=== PATIENT | male | born 1955 | race Hispanic/Latino ===

== ENCOUNTER 2016-09-19 23:50 | Emergency (ER) | payer MEDICARE ==
[~2016-09-19] VITALS: Ht 175.3 cm; Wt 86.4 kg
[~2016-09-19 23:50] MED LIST: ASPI325T32 PO; BECL8.7A6 IH; BENZ100C8 PO; FINA5TAB9 PO; FLUT15.88 NS; GLPZ5T PO; GUAI10LI PO; HYDR-4003 PO; IBUP800T28 PO; IPRA4AER IH; LEVO750T9 PO; LISI40TA PO; METF500T4 PO; METO50TA3 PO; NITR12SP5 SPRAY; OMEP20CA11 PO; PRE10 PO; PRE20 PO; SIMV80TA4 PO; TAMS0.4C98 PO
[2016-09-19 23:58] VITALS: BP 148/85; PULSE 88; RESP 21; O2SAT 97
--- NOTE | 2016-09-20 00:21 | ED.REPORT ---
HPI-General Illness Date of Service Sep 20, 2016 ED Provider: Dr. Casey Hubbard M.D. A 61 year old male with a medical history including hypertension, diabetes, asthma, and previous KS presents to the ED with worsening wheezing onset yesterday. The patient also reports productive cough with white sputum. He denies fever or other symptoms. The patient has been using his nebulizer treatments with no relief. Nursing Notes Stated Complaint: DIFFICULTY BREATHING/WHEEZING Chief Complaint: Respiratory Complaints Nursing Notes Reviewed: Yes Allergies: Coded Allergies: Penicillins (Verified Allergy, Severe, 07/16/16) azithromycin (Verified Allergy, Unknown, 07/16/16) Scheduled Albuterol/Ipratropium (Combivent Respimat Inhal [place]) 120 Spr/4 Gm Inhaler 1 PUFF IH QID Aspirin (Aspirin) 325 Mg Tablet 325 MG PO DAILY Finasteride (Finasteride) 5 Mg Tablet 5 MG PO DAILY Glipizide (Glipizide) 5 Mg Tablet 2.5 MG PO AM & Noon Levofloxacin (Levaquin) 750 Mg Tablet 750 MG PO DAILY Lisinopril (Lisinopril) 40 Mg Tablet 40 MG PO DAILY Metformin (Metformin) 500 Mg Tablet 500 MG PO TIDWM Metoprolol Tartrate (Metoprolol Tartrate) 50 Mg Tablet 50 MG PO DAILY Omeprazole (Omeprazole) 20 Mg Capsule.dr 20 MG PO DAILY Prednisone (PredniSONE) 10 Mg Tablet 10 MG PO DAILY 3 tablets each morning for 3 days, then 2 tablets each morning for 3 days, then one tablet each morning for 3 days, then stop Prednisone (PredniSONE) 20 Mg Tablet 60 MG PO DAILY Prednisone (PredniSONE) 20 Mg Tablet 60 MG PO DAILY Simvastatin (Simvastatin) 80 Mg Tablet 80 MG PO HS Tamsulosin (Flomax) 0.4 Mg Capsule 0.4 MG PO BID Scheduled PRN Albuterol Neb Soln (Albuterol Neb Soln) 2.5 Mg/3 Ml Vial.neb 2.5 MG INHALATION Q4H PRN PRN For Wheezing Beclomethasone Dipropionate (Qvar) 8.7 Gm Aer.w.adap 8.7 GM IH BID PRN PRN For Shortness of Breath Benzonatate (Benzonatate) 100 Mg Capsule 100 MG PO TID PRN PRN phlegm Fluticasone Propionate (Fluticasone Propionate) 50 Mcg/Actuation [place].susp 15.8 ML NS PRN For Congestion Guaifenesin/Codeine Phosphate (Guaifenesin-Codeine Syrup) 10 Ml Syrup 10 ML PO Q4H PRN PRN For Cough Hydrocodone-Acetaminophen 5-325 mg (Hydrocodone-Acetaminophen 5-325 mg) 1 Each Tablet 1 TABLET PO Q6H PRN PRN For Pain Ibuprofen (Ibuprofen) 800 Mg Tablet 800 MG PO TID PRN PRN For Pain Nitroglycerin (Nitrolingual) 12 Gm [place] 12 GM SPRAY PRN For Chest Pain General Time Seen by MD: 00:20 Chief Complaint Other (Wheezing) Hx Obtained From: Patient Arrived By: Walk-in Sudden in Onset?: No Onset Occurred: Yesterday Symptom Duration: Since onset Severity: Current: No pain currently Severity: Maximum: No pain Associated with: Reports: Cough, Denies: Fever, Vomiting Pertinent Negative: Relieved by nothing Context Related History: Reports Asthma, Reports Diabetes mellitus Recent Healthcare: No recent doctor visit Similar Sx Previous: Yes Past Medical History Past Medical History 1. Hypertension 2. Hyperlipidemia. 3. Type 2 diabetes mellitus. 4. BPH. 5. Hx [place] 6. GERD 7. Hx diverticulitis 8. Asthma 9. 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 Physical Exam Vital Signs Vital Signs Date Time Temp Pulse Resp B/P Pulse Ox O2 Delivery O2 Flow Rate FiO2 09/20/16 03:45 36.3 106 20 138/62 98 Room Air 09/20/16 01:59 95 20 94 Room Air 09/20/16 00:55 36.6 106 20 127/67 98 Room Air 09/19/16 23:58 36.8 88 21 148/85 97 Room Air Initial VS: Reviewed Head / Eyes: Atraumatic, Normocephalic Cardiovascular: Regular rate & rhythm, Heart sounds normal Abdomen / GI: Soft, Non-tender Extremities: Vascular intact, Neuro intact, No swelling Skin: Warm, Dry Neurologic: Alert, Oriented, Nonfocal Psychiatric: Mood/affect normal, Behavior normal, Normal thought content General/Constitutional: Awake, Alert ENT: Airway patent, Mucous membranes moist Neck: Supple, Full range of motion, No JVD Respiratory / Chest: Breath sounds = bilat, No respiratory distress Wheezing / Retractions: Positive: Wheezing moderate (Bilateral) Interpretation & Diagnostics Lab Results Interpretation Result Diagram: 09/20/16 0010 09/20/16 0010 Test 09/20/16 00:10 White Blood Count 7.3th/mm3 (3.8-10.1) Red Blood Count 4.99mil/mm3 (4.40-5.80) Hemoglobin 13.9g/dL (13.8-17.2) Hematocrit 41.7% (41.0-50.0) Mean Corpuscular Volume 83.6fL (81-100) Mean Corpuscular Hemoglobin 27.9pg (27.0-35.0) Mean Corpuscular Hemoglobin Concent 33.3% (32.0-37.0) Red Cell Distribution Width 14.7% (12.3-15.4) Platelet Count 214bil/L (150-400) Neutrophils (%) (Auto) 59.2% (40-74) Lymphocytes (%) (Auto) 22.4% (14-46) Monocytes (%) (Auto) 11.5% (4-12) Eosinophils (%) (Auto) 6.4% (0-5) Basophils (%) (Auto) 0.4% (0-3) Hold Purple Top Tube Received (Received) Prothrombin Time 10.0sec (8.1-12.5) Prothromb Time International Ratio 0.94ratio Activated Partial Thromboplast Time 25.9sec (22.8-33.0) Hold Blue Top Tube Received (Received) Sodium Level 143mEq/L (134-144) Potassium Level 4.0mEq/L (3.5-5.2) Chloride Level 105mEq/L (97-108) Carbon Dioxide Level 24mmol/L (18-29) Blood Urea Nitrogen 13mg/dL (8-27) Creatinine 1.06mg/dL (0.76-1.27) Estimat Glomerular Filtration Rate 75mL/min (>59) Glucose Level 110mg/dL (60-99) Calcium Level 8.7mg/dL (8.5-10.1) Magnesium Level 1.8mg/dL (1.6-2.6) Total Bilirubin 0.3mg/dL (0.0-1.2) Aspartate Amino Transf (AST/SGOT) 14U/L (0-50) Alanine Aminotransferase (ALT/SGPT) 16U/L (0-44) Alkaline Phosphatase 74U/L (25-160) Pro-B-Type Natriuretic Peptide 105.4pg/mL (0-210) Total Protein 6.8g/dL (6.4-8.4) Albumin 4.2g/dL (3.4-5.0) Procalcitonin 0.05ng/mL (0.00-0.08) Hold Red Top Tube Received (Received) Hold [place] Top Tube Received (Received) ECG Interpretation ECG Interpretation: Sinus rhythm rate 92 Time: 00:00 Interpreted by: ED physician X-Ray Chest Interpretation Chest Xray Interpretation: Nothing acute View: Portable, 1 view Interpretation / Wet Read by: Wet read ED physician Re-Eval/Medical Decision Med Decision/Clinical Course 61-year-old prior asthma presents with increasing shortness of breath over the past three days. X-ray shows no acute infiltrate and he is improving steadily here after treatment. He feels ready to go home at this point, and is discharged with prednisone for a week, continued albuterol both as nebulizer and puffer as needed. He does not have a spacer was provided one here. He is discharged in stable condition. Source of Hx: Old records Time of Eval: 01:15 Patient Status: Condition improved Evaluation: Lungs clear Re-Evaluation/Progress Note: Patient is improving. Time of Eval: 02:05 Patient Status: Condition improved Re-Evaluation/Progress Note: Patient continues to improve. Time of Eval: 02:26 Patient Status: Condition improved Re-Evaluation/Progress Note: Discussed with patient x-ray and lab results, diagnosis, and plan for discharge. Follow-up and return to the ER instructions given. Patient agrees with plan for care and all questions were addressed. Counseled Regarding: Diagnosis, Lab results, Need for follow-up, When/why to return to ED Discharge & Departure Shift Change Sign-Out Response to Therapy: Improved Primary Impression: Asthma Asthma severity: severe persistent Asthma complication type: with acute exacerbation Qualified Code: J45.51 - Severe persistent asthma with (acute) exacerbation Disposition: Home Discharge Condition All VS Reviewed: Yes Condition: Improved Patient Instructions: Asthma (ED) Additional Instructions: Prednisone three tabs daily for a week. Follow-up with your doctor in the meantime. Continue either nebulizer or your puffer and spacer every 3-4 hours as needed. If you are using it more frequently than that, you need to return here. Return promptly if you are worsening despite treatment. Referrals: Angeli Goodman MD (PCP) [place] Attestation Portions of this note were transcribed by Sylvie Mckinney. I, Dr. Hubbard, personally performed the history, physical exam, and medical decision-making; I reviewed and confirmed the accuracy of the information in the transcribed note. Signed by: Jadon Trent, 09/20/2016, 04:16 copies to: Angeli Goodman MD, Christopher W MD Sep 20, 2016 00:21 SYLVIE MCKINNEY Sep 20, 2016 00:27
[2016-09-20] MEDS ORDERED: Dexamethasone 10 mg/mL Inj IVPUSH ONE (00:25)
[2016-09-20] MEDS ORDERED: Albuterol 2.5 mg/3 mL Inhalation Solution NEB ONE ×2 (00:25→02:25)
[2016-09-20] MEDS ORDERED: Albuterol-Ipratropium 3 mL Inhalation Solution NEB ONE (00:25)
[2016-09-20 00:39] LABS: Mean Corpuscular Hemoglobin 27.9 pg (27.0-35.0); Mean Corpuscular Volume 83.6 fL (81-100); NEUTROPHILS % (AUTO) 59.2 % (40-74); Platelet Count 214 bil/L (150-400)
[2016-09-20 00:40] LABS: BASOPHILS % (AUTO) 0.4 % (0-3); EOSINOPHILS % (AUTO) 6.4 % (0-5); MONOCYTES % (AUTO) 11.5 % (4-12)
[2016-09-20 00:43] LABS: INR 0.94 ratio
[2016-09-20 00:55] VITALS: BP 127/67; PULSE 106; RESP 20; O2SAT 98
[2016-09-20 01:13] LABS: Magnesium 1.8 mg/dL (1.6-2.6)
[2016-09-20 01:59] VITALS: PULSE 95; RESP 20; O2SAT 94
[2016-09-20] MEDS ORDERED: PRE20 PO (03:19)
[2016-09-20] MEDS ORDERED: ALBU2.5V4 INHALATION (03:19)
[2016-09-20 03:45] VITALS: BP 138/62; PULSE 106; RESP 20; O2SAT 98
--- NOTE | 2016-09-20 09:10 | DRSVH ---
PROCEDURE: X-RAY CHEST ONE VIEW, PORTABLE ([id number]) INDICATIONS: sob, asthma TECHNIQUE: One view of the chest was acquired. COMPARISON: [facility], CR, XR CHEST 2VW, 01/21/2016, 11:13. [facility], CR , XR CHEST 1VW (PORTABLE), 08/02/2015, 4:20. FINDINGS: Surgical changes and devices: None. Lungs and pleura: No pleural effusions or pneumothorax. Lungs are clear. Mediastinum: Mediastinal contours appear normal. Heart size is normal. Bones and chest wall: No suspicious bony lesions. Overlying soft tissues appear unremarkable. IMPRESSION: No acute cardiopulmonary disease. Dictated by: Odell Baez RRDelia Interpreted: Franchesca Sargent MD on 09/20/2016 at 9:09 Transcribed by: BLAKE on 09/20/2016 at 9:10 Approved by: Franchesca Sargent M.D. on 09/20/2016 at 16:38
== END 2016-09-20 03:47 | disposition home or self-care (01) ==
LOC: SED 23:50
DX: J45.51 Severe persistent asthma with (acute) exacerbation (principal); I10 Essential (primary) hypertension; E11.9 Type 2 diabetes mellitus without complications; I25.2 Old myocardial infarction; E78.5 Hyperlipidemia, unspecified; K21.9 Gastro-esophageal reflux disease without esophagitis; Z87.01 Personal history of pneumonia (recurrent); Z87.891 Personal history of nicotine dependence; Z79.82 Long term (current) use of aspirin; Z79.84 Long term (current) use of oral hypoglycemic drugs; Z88.0 Allergy status to penicillin; Z88.1 Allergy status to other antibiotic agents
CPT/HCPCS: 36415; 71010; 80053; 82308; 83735; 83880; 85025; 85610; 85730; 93005; 94644; 96374; 99285; J1100; J7613; J7620

== ENCOUNTER 2016-10-12 01:48 | Emergency (ER) | payer MEDICARE ==
[~2016-10-12] VITALS: Ht 175.3 cm; Wt 115.9 kg
[~2016-10-12 01:48] MED LIST changes: +ALBU2.5V4 INHALATION
[2016-10-12 01:53] VITALS: BP 142/73; PULSE 97; RESP 32; O2SAT 98
[2016-10-12] MEDS ORDERED: Albuterol-Ipratropium 3 mL Inhalation Solution NEB ONE (02:00)
[2016-10-12] MEDS ORDERED: Albuterol 2.5 mg/3 mL Inhalation Solution NEB ONE ×3 (02:00→03:40)
[2016-10-12] MEDS ORDERED: MethylprednisoLONE Sodium Succinate 62.5 mg/mL 2 mL Inj IVPUSH ONE (02:00)
--- NOTE | 2016-10-12 02:00 | ED.REPORT ---
HPI-General Illness Date of Service Oct 12, 2016 ED Provider: Casey Hubbard MD Pt is a 61 y.o. male with a hx of asthma, SC, HTN, HLD, and DM who presents to the ED c/o dyspnea onset Pt states that he has used his inhaler twice since onset with no relief Nursing Notes Stated Complaint: DIFFICULTY BREATHING Chief Complaint: Respiratory Distress Nursing Notes Reviewed: Yes Allergies: Coded Allergies: Penicillins (Verified Allergy, Severe, 07/16/16) azithromycin (Verified Allergy, Unknown, 07/16/16) Scheduled Albuterol/Ipratropium (Combivent Respimat Inhal [place]) 120 Spr/4 Gm Inhaler 1 PUFF IH QID Aspirin (Aspirin) 325 Mg Tablet 325 MG PO DAILY Finasteride (Finasteride) 5 Mg Tablet 5 MG PO DAILY Glipizide (Glipizide) 5 Mg Tablet 2.5 MG PO AM & Noon Levofloxacin (Levaquin) 750 Mg Tablet 750 MG PO DAILY Lisinopril (Lisinopril) 40 Mg Tablet 40 MG PO DAILY Metformin (Metformin) 500 Mg Tablet 500 MG PO TIDWM Metoprolol Tartrate (Metoprolol Tartrate) 50 Mg Tablet 50 MG PO DAILY Omeprazole (Omeprazole) 20 Mg Capsule.dr 20 MG PO DAILY Prednisone (PredniSONE) 10 Mg Tablet 10 MG PO DAILY 3 tablets each morning for 3 days, then 2 tablets each morning for 3 days, then one tablet each morning for 3 days, then stop Prednisone (PredniSONE) 20 Mg Tablet 60 MG PO DAILY Prednisone (PredniSONE) 20 Mg Tablet 60 MG PO DAILY Prednisone (PredniSONE) 50 Mg Tablet 50 MG PO DAILY Simvastatin (Simvastatin) 80 Mg Tablet 80 MG PO HS Tamsulosin (Flomax) 0.4 Mg Capsule 0.4 MG PO BID Scheduled PRN Albuterol Neb Soln (Albuterol Neb Soln) 2.5 Mg/3 Ml Vial.neb 2.5 MG INHALATION Q4H PRN PRN For Wheezing Beclomethasone Dipropionate (Qvar) 8.7 Gm Aer.w.adap 8.7 GM IH BID PRN PRN For Shortness of Breath Benzonatate (Benzonatate) 100 Mg Capsule 100 MG PO TID PRN PRN phlegm Fluticasone Propionate (Fluticasone Propionate) 50 Mcg/Actuation [place].susp 15.8 ML NS PRN For Congestion Guaifenesin/Codeine Phosphate (Guaifenesin-Codeine Syrup) 10 Ml Syrup 10 ML PO Q4H PRN PRN For Cough Hydrocodone-Acetaminophen 5-325 mg (Hydrocodone-Acetaminophen 5-325 mg) 1 Each Tablet 1 TABLET PO Q6H PRN PRN For Pain Ibuprofen (Ibuprofen) 800 Mg Tablet 800 MG PO TID PRN PRN For Pain Nitroglycerin (Nitrolingual) 12 Gm [place] 12 GM SPRAY PRN For Chest Pain General Time Seen by MD: 01:59 Chief Complaint Other (Dyspnea) Hx Obtained From: Patient Arrived By: Walk-in Sudden in Onset?: Yes Symptom Duration: Since onset Past Medical History Past Medical History 1. Hypertension 2. Hyperlipidemia. 3. Type 2 diabetes mellitus. 4. BPH. 5. Hx SC 6. GERD 7. Hx diverticulitis 8. Asthma 9. Hx pneumonia Past Surgical History back surgery (3X) Cardiac cath in 2005 with diffuse coronary ectasia Family History non-contributory Smoking History Former Smoker Social History Alcohol Use: Denies alcohol use Drug Use: Denies drug use Other Social History: Good social support Ambulatory Status Independent Review of Systems Complete sys rev & neg: except as marked. Physical Exam Gen: A/O x3 cooperative man in mild acute distress secondary to SOB Neck: Large bull neck, full ROM HEENT: PERRL, EOMI, no scleral iceterus, CV: RRR, no murmurs rubs or gallops Resp: diffuse expiratory wheezing, increased AP diameter, chronic sounding cough Abdomen: Soft, non tender, no organomegally Extr: No cyanosis clubbing or edema Neuro: CN 2-12 grossly intact, no focal neurologic deficit. Vital Signs Vital Signs Date Time Temp Pulse Resp B/P Pulse Ox O2 Delivery O2 Flow Rate FiO2 10/12/16 06:02 36.5 70 14 118/70 98 Room Air 10/12/16 03:53 106 22 97 Room Air 10/12/16 02:17 96 20 96 Room Air 10/12/16 01:53 36.3 97 32 142/73 98 Room Air Initial VS: Reviewed Interpretation & Diagnostics Lab Results Interpretation Result Diagram: 10/12/16 0230 10/12/16 0230 Test 10/12/16 02:30 10/12/16 03:00 White Blood Count 6.4th/mm3 (3.8-10.1) Red Blood Count 4.93mil/mm3 (4.40-5.80) Hemoglobin 13.6g/dL (13.8-17.2) Hematocrit 40.6% (41.0-50.0) Mean Corpuscular Volume 82.4fL (81-100) Mean Corpuscular Hemoglobin 27.6pg (27.0-35.0) Mean Corpuscular Hemoglobin Concent 33.5% (32.0-37.0) Red Cell Distribution Width 14.8% (12.3-15.4) Platelet Count 194bil/L (150-400) Neutrophils (%) (Auto) 55.4% (40-74) Lymphocytes (%) (Auto) 25.7% (14-46) Monocytes (%) (Auto) 9.2% (4-12) Eosinophils (%) (Auto) 9.1% (0-5) Basophils (%) (Auto) 0.3% (0-3) Prothrombin Time 10.0sec (8.1-12.5) Prothromb Time International Ratio 0.94ratio Activated Partial Thromboplast Time 25.1sec (22.8-33.0) Sodium Level 141mEq/L (134-144) Potassium Level 4.2mEq/L (3.5-5.2) Chloride Level 104mEq/L (97-108) Carbon Dioxide Level 21mmol/L (18-29) Blood Urea Nitrogen 13mg/dL (8-27) Creatinine 1.14mg/dL (0.76-1.27) Estimat Glomerular Filtration Rate 69mL/min (>59) Glucose Level 163mg/dL (60-99) Lactic Acid Level 2.6mmol/L (0.4-2.0) Calcium Level 8.6mg/dL (8.5-10.1) Magnesium Level 1.8mg/dL (1.6-2.6) Total Bilirubin 0.3mg/dL (0.0-1.2) Aspartate Amino Transf (AST/SGOT) 21U/L (0-50) Alanine Aminotransferase (ALT/SGPT) 31U/L (0-44) Alkaline Phosphatase 72U/L (25-160) Troponin T 0.010ug/L (0.0-0.011) Pro-B-Type Natriuretic Peptide 43pg/mL (0-210) Total Protein 6.2g/dL (6.4-8.4) Albumin 4.0g/dL (3.4-5.0) Procalcitonin 0.05ng/mL (0.00-0.08) Hold Urine Received (Received) Re-Eval/Medical Decision Med Decision/Clinical Course Patient was given Duoneb, Solu Medrol 125, Albuterol x2. Laboratory values witihn acceptable range of prior values. Patient states that his breathing was improved following administration of the above meds. The patient was provided with a puffer and spacer to utilize his rescue albuterol, and was instructed in its use. He was given instructions for follow up and return precautions. 61-year-old with asthma presents with an exacerbation without obvious cause. He appears to have some mild upper history symptoms as the initiating factor. Allergy may also be an issue, given the season. He is improved although not to baseline after multiple nebulizer doses here. He is feeling much more comfortable and wanting to go home at this point. Provided with a one-week course of prednisone at 60 mg daily, and a rescue albuterol puffer, which she is apparently misplaced. He is discharged in improved condition. Counseled Regarding: Diagnosis, Lab results, Need for follow-up, When/why to return to ED Discharge & Departure Shift Change Sign-Out Patient Care Transferred: No Discussed Complaint(s): Yes Laboratory Evaluation: Lab evaluation discussed Imaging Studies: Imaging discussed Response to Therapy: Improved Primary Impression: COPD exacerbation Additional Impression: Asthma Disposition: Home Discharge Condition All VS Reviewed: Yes Condition: Stable Patient Instructions: Chronic Obstructive Pulmonary Disease (ED) Additional Instructions: You have likely had an exacerbation of your COPD. We have provided you with the apparatus to use a rescue inhaler in the future should you have another attack. If you become increasingly short of breath despite use of the rescue inhaler, or if you become so short of breath that you cannot function please return back to the ER for further evaluation. You should follow up with your primary care doctor within 2 weeks for further workup for your COPD, and to try and develop a better strategy for avoiding these flare ups in the future. Referrals: Angeli Goodman MD (PCP) Attending Statement As attending of record for this patient, I conducted an independent history and physical exam, and concur with the resident documentation as above, and as amended. copies to: Angeli Goodman MD, Christopher W MD Oct 12, 2016 02:00 DERIK BAILEY Oct 12, 2016 02:04 Marcos Ashby DO Oct 12, 2016 03:39
[2016-10-12 02:17] VITALS: PULSE 96; RESP 20; O2SAT 96
[2016-10-12 02:47] LABS: BASOPHILS % (AUTO) 0.3 % (0-3); EOSINOPHILS % (AUTO) 9.1 % (0-5); MONOCYTES % (AUTO) 9.2 % (4-12); Mean Corpuscular Hemoglobin 27.6 pg (27.0-35.0); Mean Corpuscular Volume 82.4 fL (81-100); NEUTROPHILS % (AUTO) 55.4 % (40-74); Platelet Count 194 bil/L (150-400)
[2016-10-12 03:04] LABS: INR 0.94 ratio
[2016-10-12 03:14] LABS: TROPONIN T 0.01 ug/L (0.0-0.011)
[2016-10-12 03:21] LABS: Magnesium 1.8 mg/dL (1.6-2.6)
[2016-10-12 03:53] VITALS: PULSE 106; RESP 22; O2SAT 97
[2016-10-12] MEDS ORDERED: _Albuterol-HFA 60 Puff Inhaler INHALATION PRN (05:00)
[2016-10-12] MEDS ORDERED: PRED50TA PO (05:02)
[2016-10-12 06:02] VITALS: BP 118/70; PULSE 70; RESP 14; O2SAT 98
--- NOTE | 2016-10-12 09:20 | DRSVH ---
PROCEDURE: X-RAY CHEST ONE VIEW, PORTABLE ([id number]) INDICATIONS: SHORT OF BREATH TECHNIQUE: One view of the chest was acquired. COMPARISON: [facility], CR, XR CHEST 1VW (PORTABLE), 09/20/2016, 0:32. FINDINGS: Surgical changes and devices: None. Lungs and pleura: No pleural effusions or pneumothorax. Lungs are clear. Mediastinum: Mediastinal contours appear normal. Heart size is normal. Bones and chest wall: No suspicious bony lesions. Overlying soft tissues appear unremarkable. IMPRESSION: No acute cardiopulmonary disease. Dictated by: Odell Baez [facility] Interpreted: Radha Santacruz MD on 10/12/2016 at 9:20 Transcribed by: RALEIGH on 10/12/2016 at 9:20 Approved by: Radha Santacruz MD, PhD on 10/12/2016 at 17:00
== END 2016-10-12 06:05 | disposition home or self-care (01) ==
LOC: SED 01:48
DX: J44.1 Chronic obstructive pulmonary disease with (acute) exacerbation (principal); J45.998 Other asthma; I10 Essential (primary) hypertension; E78.5 Hyperlipidemia, unspecified; E11.9 Type 2 diabetes mellitus without complications; K21.9 Gastro-esophageal reflux disease without esophagitis; I25.2 Old myocardial infarction; Z87.891 Personal history of nicotine dependence; Z79.84 Long term (current) use of oral hypoglycemic drugs; Z79.82 Long term (current) use of aspirin; Z88.0 Allergy status to penicillin; Z88.1 Allergy status to other antibiotic agents
CPT/HCPCS: 36415; 71010; 80053; 83605; 83735; 83880; 84145; 84484; 85025; 85610; 85730; 87040; 87070; 87205; 93005; 94644; 94645; 96374; 99285; J2930; J7613; J7620